=== PATIENT | female | born 1960 | race Caucasian/White ===

== ENCOUNTER 2020-07-20 00:04 | Inpatient (IN) ==
[2020-07-20 01:02] LABS: Basophils % 0.5 %; Eosinophils % 0.3 %; Hematocrit 40.7 % (35.3-44.9); Hemoglobin 12.9 g/dL (11.5-15.4); Immature Granulocytes % 2.1 % (0-4); Lymphocytes # 1.3 K/mcL (0.6-4.6); Lymphocytes % 21.3 %; Mean Corpuscular HGB Conc 31.7 g/dL (31.6-35.5); Mean Corpuscular Hemoglobin 29.5 pg (28.0-33.3); Mean Corpuscular Volume 93.1 fL (83.0-100.0); Monocytes # 0.4 K/mcL (0.0-1.3); Monocytes % 5.9 %; Neutrophils # 4.4 K/mcL (1.6-8.9); Platelet Count 211 K/mcL (140-400); Red Blood Count 4.37 M/mcL (3.82-4.97); Red Cell Distribution Width 13.2 % (11.5-14.5); Segmented Neutrophils % 69.9 %; White Blood Count 6.3 K/mcL (4.3-11.1)
[2020-07-20 01:23] LABS: BUN/Creatinine Ratio 17 (6-26); Blood Urea Nitrogen 15 mg/dL (6-20); Calcium 8.4 mg/dL (8.6-10.3); Carbon Dioxide 27 mEq/L (23-29); Chloride 103 mEq/L (98-107); Glucose 118 mg/dL (70-105); Osmolality,Calculated 288 (280-300); Potassium 4.3 mEq/L (3.5-5.1); Sodium 138 mEq/L (136-145); Troponin I < 0.03 ng/mL (< 0.04); eGFR For African Americans > 60 (> 60); eGFR For Non-African Americans > 60 (> 60)
[2020-07-20] MEDS ORDERED: Naloxone 0.4 MG/ML INJ IVP PRN (02:35)
[2020-07-20] MEDS ORDERED: Ondansetron 4 MG/2 ML VIAL IVP PRN (02:35)
[2020-07-20] MEDS ORDERED: Furosemide 20 MG TABLET PO PRN (02:41)
[2020-07-20 02:56] LABS: INR 1.6; Prothrombin Time 18.2 Seconds (9.4-12.1)
[2020-07-20 02:58] LABS: Magnesium 2.1 mg/dL (1.6-2.6)
[2020-07-20] MEDS: *HR* Enoxaparin 120 MG/0.8 ML SYRINGE SQ SCH ×2 (06:03→18:12)
[2020-07-20 07:40] LABS: Fibrinogen 331 mg/dL (169-393)
[2020-07-20 07:52] LABS: D-Dimer 433 ng/mLFEU (0-500)
[2020-07-20] MEDS: Dexamethasone Sodium Phos/PF 10 MG/ML VIAL IVP SCH (07:53)
[2020-07-20 08:12] LABS: Lactate Dehydrogenase 304 Units/L (140-271)
[2020-07-20 08:25] LABS: Ferritin 196 ng/mL (10-120)
[2020-07-20] MEDS ORDERED: Isovue-370 500 ML BOTTLE IVP ONE (09:28)
[2020-07-20 09:44] LABS: C-Reactive Protein 37 mg/L (Less than 10)
[2020-07-20] MEDS ORDERED: traZODone 50 MG TABLET PO PRN (12:47)
[2020-07-20] MEDS: Doxycycline 100 MG CAPSULE PO SCH ×2 (13:15→20:01)
[2020-07-20] MEDS: Gabapentin 400 MG CAPSULE PO SCH ×3 (13:15→20:01)
[2020-07-20] MEDS ORDERED: Warfarin perPT PO PRN (18:00)
[2020-07-20] MEDS ORDERED: *HR* Warfarin 2.5 MG TABLET PO ONE (18:00)
[2020-07-20] MEDS: carvediloL 6.25 MG TABLET PO SCH (18:11)
[2020-07-20] MEDS: *HR* HYDROcodone/Acet 10/325 mg TABLET PO PRN (19:32)
[2020-07-21 04:46] LABS: Basophils % 0.4 %; Eosinophils # 0.1 K/mcL (0.0-0.6); Hematocrit 38.4 % (35.3-44.9); Hemoglobin 12.2 g/dL (11.5-15.4); Immature Granulocytes % 3.2 % (0-4); Lymphocytes # 1.9 K/mcL (0.6-4.6); Lymphocytes % 23.9 %; Mean Corpuscular HGB Conc 31.8 g/dL (31.6-35.5); Mean Corpuscular Hemoglobin 29.8 pg (28.0-33.3); Mean Corpuscular Volume 93.9 fL (83.0-100.0); Mean Platelet Volume 11.7 fL (9.4-12.4); Monocytes # 0.5 K/mcL (0.0-1.3); Monocytes % 6.8 %; Platelet Count 217 K/mcL (140-400); Red Blood Count 4.09 M/mcL (3.82-4.97); Red Cell Distribution Width 13.6 % (11.5-14.5); Segmented Neutrophils % 64.7 %; White Blood Count 7.7 K/mcL (4.3-11.1)
[2020-07-21 04:53] LABS: INR 1.6; Prothrombin Time 18.4 Seconds (9.4-12.1)
[2020-07-21 05:06] LABS: BUN/Creatinine Ratio 20 (6-26); Blood Urea Nitrogen 18 mg/dL (6-20); C-Reactive Protein 25 mg/L (Less than 10); Calcium 8.7 mg/dL (8.6-10.3); Carbon Dioxide 32 mEq/L (23-29); Chloride 102 mEq/L (98-107); Glucose 106 mg/dL (70-105); Osmolality,Calculated 286 (280-300); Potassium 4.6 mEq/L (3.5-5.1); Sodium 137 mEq/L (136-145); eGFR For African Americans > 60 (> 60); eGFR For Non-African Americans > 60 (> 60)
[2020-07-21 05:23] LABS: Ferritin 196 ng/mL (10-120)
[2020-07-21] MEDS: *HR* Enoxaparin 120 MG/0.8 ML SYRINGE SQ SCH ×2 (06:04→17:46)
[2020-07-21] MEDS: Doxycycline 100 MG CAPSULE PO SCH ×2 (08:59→20:45)
[2020-07-21] MEDS: Dexamethasone Sodium Phos/PF 10 MG/ML VIAL IVP SCH (09:00)
[2020-07-21] MEDS: Gabapentin 400 MG CAPSULE PO SCH ×4 (09:00→20:45)
[2020-07-21] MEDS ORDERED: Furosemide 20 MG TABLET PO SCH (09:00)
[2020-07-21] MEDS: carvediloL 6.25 MG TABLET PO SCH ×2 (09:03→17:45)
[2020-07-21] MEDS: *HR* HYDROcodone/Acet 10/325 mg TABLET PO PRN (14:06)
[2020-07-21] MEDS ORDERED: Benzonatate 100 MG CAPSULE PO PRN (17:55)
[2020-07-21] MEDS ORDERED: *HR* Warfarin 2.5 MG TABLET PO ONE (18:00)
[2020-07-21] MEDS: Ipratropium 1 PUFF INHALER IH SCH (19:53)
[2020-07-21] MEDS: Acetaminophen 325 MG TABLET PO PRN (21:14)
[2020-07-22] MEDS: Ipratropium 1 PUFF INHALER IH SCH ×4 (04:19→22:57)
[2020-07-22] MEDS: *HR* HYDROcodone/Acet 10/325 mg TABLET PO PRN (04:33)
[2020-07-22] MEDS: *HR* Enoxaparin 120 MG/0.8 ML SYRINGE SQ SCH ×2 (04:36→18:49)
[2020-07-22 05:06] LABS: Basophils # 0.1 K/mcL (0.0-0.2); Basophils % 0.7 %; Eosinophils % 0.3 %; Hematocrit 40.8 % (35.3-44.9); Hemoglobin 13.2 g/dL (11.5-15.4); Immature Granulocytes % 4.8 % (0-4); Lymphocytes # 2.1 K/mcL (0.6-4.6); Lymphocytes % 19.8 %; Mean Corpuscular HGB Conc 32.4 g/dL (31.6-35.5); Mean Corpuscular Hemoglobin 30.2 pg (28.0-33.3); Mean Corpuscular Volume 93.4 fL (83.0-100.0); Mean Platelet Volume 11.9 fL (9.4-12.4); Monocytes # 0.9 K/mcL (0.0-1.3); Monocytes % 8.8 %; Platelet Count 246 K/mcL (140-400); Red Blood Count 4.37 M/mcL (3.82-4.97); Red Cell Distribution Width 13.4 % (11.5-14.5); Segmented Neutrophils % 65.6 %; White Blood Count 10.6 K/mcL (4.3-11.1)
[2020-07-22 05:15] LABS: INR 1.7; Prothrombin Time 19.1 Seconds (9.4-12.1)
[2020-07-22 05:28] LABS: Alanine Aminotransferase 13 Units/L (7-52); Albumin 3.7 g/dL (3.5-5.7); Albumin/Globulin Ratio 1.4 (1.1-2.2); Alkaline Phosphatase 55 Units/L (34-104); Aspartate Amino Transferase 10 Units/L (13-39); BUN/Creatinine Ratio 20 (6-26); Bilirubin,Total 0.4 mg/dL (0.3-1.0); Blood Urea Nitrogen 18 mg/dL (6-20); C-Reactive Protein 18 mg/L (Less than 10); Calcium 9.2 mg/dL (8.6-10.3); Carbon Dioxide 32 mEq/L (23-29); Chloride 100 mEq/L (98-107); Globulin 2.7 g/dL (2.4-3.5); Glucose 94 mg/dL (70-105); Lactate Dehydrogenase 272 Units/L (140-271); Magnesium 2.1 mg/dL (1.6-2.6); Osmolality,Calculated 288 (280-300); Phosphorous 4.4 mg/dL (2.7-4.5); Potassium 4.2 mEq/L (3.5-5.1); Sodium 138 mEq/L (136-145); Total Protein 6.4 g/dL (6.4-8.9); eGFR For African Americans > 60 (> 60); eGFR For Non-African Americans > 60 (> 60)
[2020-07-22 05:45] LABS: Ferritin 202 ng/mL (10-120)
[2020-07-22] MEDS ORDERED: Furosemide 20 MG/2 ML VIAL IVP SCH (09:00)
[2020-07-22] MEDS: carvediloL 6.25 MG TABLET PO SCH ×3 (10:13→19:23)
[2020-07-22] MEDS: Dexamethasone Sodium Phos/PF 10 MG/ML VIAL IVP SCH (10:13)
[2020-07-22] MEDS: Gabapentin 400 MG CAPSULE PO SCH ×4 (10:13→20:55)
[2020-07-22] MEDS: Pantoprazole 40 MG VIAL IVP SCH (10:13)
[2020-07-22] MEDS: Doxycycline 100 MG CAPSULE PO SCH ×2 (10:13→20:56)
[2020-07-22] MEDS ORDERED: *HR* Warfarin 2.5 MG TABLET PO ONE (18:00)
[2020-07-23] MEDS: Ipratropium 1 PUFF INHALER IH SCH ×4 (04:26→22:00)
[2020-07-23] MEDS: *HR* Enoxaparin 120 MG/0.8 ML SYRINGE SQ SCH ×2 (05:41→16:33)
[2020-07-23 06:14] LABS: INR 1.9; Prothrombin Time 22.1 Seconds (9.4-12.1)
[2020-07-23 06:16] LABS: Basophils % 0.4 %; Eosinophils % 0.1 %; Hematocrit 38.7 % (35.3-44.9); Hemoglobin 12.4 g/dL (11.5-15.4); Immature Granulocytes % 5.4 % (0-4); Lymphocytes # 1.9 K/mcL (0.6-4.6); Lymphocytes % 17.3 %; Mean Corpuscular Hemoglobin 29.8 pg (28.0-33.3); Mean Platelet Volume 12.1 fL (9.4-12.4); Monocytes % 8.7 %; Neutrophils # 7.6 K/mcL (1.6-8.9); Platelet Count 245 K/mcL (140-400); Red Blood Count 4.16 M/mcL (3.82-4.97); Red Cell Distribution Width 13.7 % (11.5-14.5); Segmented Neutrophils % 68.1 %; White Blood Count 11.2 K/mcL (4.3-11.1)
[2020-07-23 06:53] LABS: Alanine Aminotransferase 12 Units/L (7-52); Albumin 3.6 g/dL (3.5-5.7); Albumin/Globulin Ratio 1.4 (1.1-2.2); Alkaline Phosphatase 58 Units/L (34-104); Aspartate Amino Transferase 10 Units/L (13-39); BUN/Creatinine Ratio 23 (6-26); Bilirubin,Total 0.3 mg/dL (0.3-1.0); Blood Urea Nitrogen 21 mg/dL (6-20); Calcium 9.4 mg/dL (8.6-10.3); Carbon Dioxide 30 mEq/L (23-29); Chloride 98 mEq/L (98-107); Ferritin 207 ng/mL (10-120); Globulin 2.6 g/dL (2.4-3.5); Glucose 129 mg/dL (70-105); Lactate Dehydrogenase 270 Units/L (140-271); Osmolality,Calculated 289 (280-300); Phosphorous 3.9 mg/dL (2.7-4.5); Potassium 4.4 mEq/L (3.5-5.1); Sodium 137 mEq/L (136-145); Total Protein 6.2 g/dL (6.4-8.9); eGFR For African Americans > 60 (> 60); eGFR For Non-African Americans > 60 (> 60)
[2020-07-23] MEDS: Doxycycline 100 MG CAPSULE PO SCH ×2 (08:04→21:56)
[2020-07-23] MEDS: Gabapentin 400 MG CAPSULE PO SCH ×4 (08:04→21:55)
[2020-07-23] MEDS: carvediloL 6.25 MG TABLET PO SCH ×2 (08:04→16:32)
[2020-07-23] MEDS: Furosemide 40 MG/4 ML VIAL IVP SCH (08:05)
[2020-07-23] MEDS: Dexamethasone Sodium Phos/PF 10 MG/ML VIAL IVP SCH (08:05)
[2020-07-23] MEDS: Pantoprazole 40 MG VIAL IVP SCH (08:05)
[2020-07-23] MEDS: Acetaminophen 325 MG TABLET PO PRN (08:38)
[2020-07-23 09:24] LABS: C-Reactive Protein 11 mg/L (Less than 10)
[2020-07-23] MEDS: *HR* HYDROcodone/Acet 10/325 mg TABLET PO PRN (12:21)
[2020-07-23 15:11] LABS: Platelet Estimate Normal (Normal)
[2020-07-23] MEDS ORDERED: *HR* Warfarin 2.5 MG TABLET PO ONE (18:00)
[2020-07-23] MEDS: Saline Nasal Spray 44 ML BOTTLE NS SCH (21:53)
[2020-07-24] MEDS: Saline Nasal Spray 44 ML BOTTLE NS SCH ×3 (03:02→08:38)
[2020-07-24 03:24] LABS: Basophils # 0.1 K/mcL (0.0-0.2); Basophils % 0.6 %; Eosinophils % 0.1 %; Hematocrit 40.6 % (35.3-44.9); Immature Granulocytes % 5.6 % (0-4); Lymphocytes # 2.1 K/mcL (0.6-4.6); Lymphocytes % 19.1 %; Mean Corpuscular Hemoglobin 29.8 pg (28.0-33.3); Mean Corpuscular Volume 93.1 fL (83.0-100.0); Monocytes # 0.9 K/mcL (0.0-1.3); Monocytes % 8.3 %; Neutrophils # 7.2 K/mcL (1.6-8.9); Nucleated Red Blood Cells 0.2 /100 WBC (0); Platelet Count 234 K/mcL (140-400); Red Blood Count 4.36 M/mcL (3.82-4.97); Red Cell Distribution Width 13.6 % (11.5-14.5); Segmented Neutrophils % 66.3 %; White Blood Count 10.9 K/mcL (4.3-11.1)
[2020-07-24 03:31] LABS: INR 2.2; Prothrombin Time 24.5 Seconds (9.4-12.1)
[2020-07-24 03:46] LABS: Alanine Aminotransferase 13 Units/L (7-52); Albumin 3.6 g/dL (3.5-5.7); Alkaline Phosphatase 57 Units/L (34-104); Aspartate Amino Transferase 11 Units/L (13-39); BUN/Creatinine Ratio 24 (6-26); Bilirubin,Total 0.3 mg/dL (0.3-1.0); Blood Urea Nitrogen 23 mg/dL (6-20); Carbon Dioxide 33 mEq/L (23-29); Chloride 97 mEq/L (98-107); Glucose 110 mg/dL (70-105); Magnesium 1.9 mg/dL (1.6-2.6); Osmolality,Calculated 288 (280-300); Phosphorous 4.3 mg/dL (2.7-4.5); Potassium 4.3 mEq/L (3.5-5.1); Sodium 137 mEq/L (136-145); Total Protein 6.2 g/dL (6.4-8.9); eGFR For African Americans > 60 (> 60); eGFR For Non-African Americans 60 (> 60)
[2020-07-24 03:47] LABS: Albumin/Globulin Ratio 1.4 (1.1-2.2); C-Reactive Protein 7 mg/L (Less than 10); Globulin 2.6 g/dL (2.4-3.5); Lactate Dehydrogenase 271 Units/L (140-271)
[2020-07-24 04:01] LABS: Ferritin 209 ng/mL (10-120)
[2020-07-24 04:02] LABS: Platelet Estimate Normal (Normal); Reactive Lymphocytes Present (Not Present)
[2020-07-24] MEDS: Ipratropium 1 PUFF INHALER IH SCH ×2 (04:06→08:21)
[2020-07-24] MEDS: *HR* Enoxaparin 120 MG/0.8 ML SYRINGE SQ SCH (04:49)
[2020-07-24] MEDS: Gabapentin 400 MG CAPSULE PO SCH ×2 (07:48→11:45)
[2020-07-24] MEDS: Doxycycline 100 MG CAPSULE PO SCH (07:48)
[2020-07-24] MEDS: Furosemide 40 MG/4 ML VIAL IVP SCH (07:49)
[2020-07-24] MEDS: Pantoprazole 40 MG VIAL IVP SCH (07:49)
[2020-07-24] MEDS: Dexamethasone Sodium Phos/PF 10 MG/ML VIAL IVP SCH (07:49)
[2020-07-24] MEDS: *HR* HYDROcodone/Acet 10/325 mg TABLET PO PRN (07:55)
[2020-07-24] MEDS ORDERED: carvediloL 6.25 MG TABLET PO SCH (08:00)
[2020-07-24] MEDS ORDERED: lisinopriL 10 MG TABLET PO SCH (09:00)
[2020-07-24] MEDS ORDERED: Multivit/Ca/Min/Fe/FA 1 TAB TABLET PO SCH (09:00)
[2020-07-24 11:39] VITALS: BP 128/85
[2020-07-24] MEDS ORDERED: *HR* Warfarin 2.5 MG TABLET PO ONE (18:00)
== END 2020-07-24 13:31 | disposition home health service (06) | DRG 177 ==
LOC: 2NENU 00:04 → EMEROOARM 00:04 → SUATTDRO 02:53 → 2NENU 02:59 → 3BNU 07-22 00:37
PROVIDERS: ADMIT Family Medicine; ATTEND Internal Medicine